=== PATIENT | female | born 1945 | race African-American/Black ===

== ENCOUNTER 2023-11-04 01:18 | Emergency (ER) | payer OTHER ==
[~2023-11-04] VITALS: Ht 165.1 cm; Wt 68.0 kg
[~2023-11-04 01:18] MED LIST: AMLODIPINE; ASPIRIN; HYDROCHLOROTHIAZIDE; SIMVASTATIN
[2023-11-04 01:21] VITALS: TEMP 98.6; O2SAT 99
[2023-11-04 02:40] VITALS: BP 106/62; PULSE 66; RESP 14
== END 2023-11-04 02:51 | disposition left against medical advice (07) ==
LOC: ER 01:29
DX: R53.1 Weakness (principal); E78.00 Pure hypercholesterolemia, unspecified; I10 Essential (primary) hypertension
CPT/HCPCS: 82962; 93005; 99283